=== PATIENT | male | born 1965 | race Caucasian/White ===

== ENCOUNTER → 2017-03-18 | Outpatient (CLI) | payer BC ==
--- NOTE | 2017-03-18 16:25 | KCIC ---
EXAM: MRI LUMBAR SPINE WITHOUT CONTRAST. HISTORY: Back pain, right lower extremity radiculopathy. TECHNIQUE: Magnetic resonance images of the lumbar spine were obtained without contrast. COMPARISON: None. FINDINGS: There is slight retrolisthesis from L3 through L5. No fractures are identified. Degenerative disc disease is moderate to severe from L3 through L5. The conus is at L1 and appears normal. At T11-12, there is a small posterior disc bulge. There is no stenosis. At T12-L1, there is a minimal posterior disc bulge. There is no stenosis. At L1-2, there is a minimal posterior disc bulge versus a small right paracentral protrusion. This level is not included on the axial series. There is no stenosis. At L2-3, there is a small posterior disc bulge. There is no stenosis. At L3-4, there is a moderate posterior disc-osteophyte complex with a moderate broad superimposed inferior disc extrusion. Disc material extends inferiorly in the anterior epidural space by 6 mm. Both lateral recesses are moderately to severely narrowed with mass effect on both L4 nerve roots. Central canal stenosis is overall mild. Neural foraminal stenosis is mild to moderate bilaterally. Lateral osteophyte complexes exert some mass effect on the exiting L3 nerve roots bilaterally. At L4-5, there is a moderate posterior disc-osteophyte complex. Both lateral recesses are mildly to moderately narrowed. Neural foraminal stenosis is mild to moderate bilaterally. There is mild mass effect on both exiting L4 nerve roots from lateral osteophyte complexes. At L5-S1, there is no stenosis. IMPRESSION: 1. At L3-4, a moderate broad inferior disc extrusion results in mild central canal stenosis and moderate to severe bilateral lateral recess stenosis. Neural foraminal stenosis is mild to moderate bilaterally. 2. At L4-5, neural foraminal stenosis is mild to moderate bilaterally. Both lateral recesses are also mildly to moderately narrowed. 3. Moderate to severe degenerative disc disease from L3 through L5. Electronically signed by: Kulwinder Manriquez MD (03/18/2017 4:23 PM) [facility]
== END | disposition home or self-care (01) ==
LOC: KCIC MRI 14:33
PROVIDERS: ATTEND Family Medicine
DX: M48.06 Spinal stenosis, lumbar region (principal); M51.16 Intervertebral disc disorders with radiculopathy, lumbar region
CPT/HCPCS: 72148

== ENCOUNTER → 2017-05-24 | Outpatient (CLI) | payer BC ==
[~2017-05-24] MED LIST: ALLO300T PO; COLC0.6T34 PO; CYCL10TA2 PO; GLIM2TAB2 PO; HYDR-2762 PO; HYDR50TA6 PO; LISI30TA4 PO
--- NOTE | 2017-05-24 15:50 | EKG ---
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
[2017-05-24 15:54] LABS: BASO % 1 % (0-3); EOS % 2 % (0-3); HEMATOCRIT 43.2 % (39.0-53.0); HEMOGLOBIN 14.6 g/dL (13.0-17.5); LYMPH # 1.8 x10^3/uL (1.0-4.8); LYMPH % 25 % (24-48); MEAN CORPUSCULAR HEMOGLOBIN 30 pg (25-35); MEAN CORPUSCULAR HGB CONC 34 g/dL (31-37); MEAN CORPUSCULAR VOLUME 90 fL (79-100); MONO % 7 % (0-9); NEUT % 66 % (31-73); PLATELET COUNT 173 x10^3/uL (140-400); RED CELL DISTRIBUTION WIDTH 13.9 % (11.5-14.5); WHITE BLOOD COUNT 7.2 x10^3/uL (4.0-11.0)
[2017-05-24 16:21] LABS: ALBUMIN 4.3 g/dL (3.4-5.0); ALBUMIN/GLOBULIN RATIO 1.4 (1.0-1.7); CALCIUM 10.2 mg/dL (8.5-10.1); CREATININE 1.9 mg/dL (0.7-1.3); GFR 37.1; POTASSIUM 3.7 mmol/L (3.5-5.1); TOTAL BILIRUBIN 0.9 mg/dL (0.2-1.0); TOTAL PROTEIN 7.4 g/dL (6.4-8.2)
== END | disposition home or self-care (01) ==
LOC: SURGPAT 14:33
PROVIDERS: ATTEND Neurological Surgery
DX: M48.06 Spinal stenosis, lumbar region (principal); M54.16 Radiculopathy, lumbar region; I44.4 Left anterior fascicular block; I49.1 Atrial premature depolarization; I10 Essential (primary) hypertension
CPT/HCPCS: 36415; 80053; 83036; 85025; 87641; 93005

== ENCOUNTER 2017-06-03 08:33 | Day surgery (SDC) | payer BC ==
[~2017-06-03] VITALS: Ht 170.2 cm; Wt 90.7 kg
--- NOTE | 2017-06-03 07:01 | HP ---
ADMIT DATE: DATE OF SURGERY: 06/03/2017 HISTORY OF PRESENT ILLNESS: The patient is a pleasant 52-year-old man who is having difficulty with low back pain and pain which radiates to his right hip and anterior thigh as well as lateral thigh on the right side. The pain and numbness can extend into his right leg. He feels as though there may be some weakness in his right foot. He has not fallen. The problem started in September 2015. He said this occurred after he was remodeling a bathroom. He rates his pain as 6-7/10. He relates that it can become a 10/10 at its worse. He has been limiting his lifting, which is helping him. He is taking hydrocodone 7.5. He has had epidural steroid injections, which have not given him lasting relief. Chiropractic treatment did not help him. He tried physical therapy, but stopped because it was too painful. PAST MEDICAL HISTORY: Gout, hypertension, kidney problems, diabetes. PAST SURGICAL HISTORY: Surgery on his right arm for a puncture wound in 1978. MEDICATIONS: Hydrocodone. ALLERGIES: No known drug allergies. FAMILY HISTORY: Alzheimer disease, diabetes. 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 Single. Does not smoke. Drinks alcohol one to two times per year. REVIEW OF SYSTEMS: A 12-point review of systems was performed and is noncontributory except that mentioned above. PHYSICAL EXAMINATION: GENERAL: Alert, pleasant, in no acute distress. HEAD: Normocephalic, atraumatic. SKIN: Warm and dry. MUSCULOSKELETAL: Lumbar paraspinal muscle bulk is normal, restricted range of motion of the lumbar spine, [id number] tenderness of the lower lumbar spine with palpation, normal range of motion of the lower extremities bilaterally. EXTREMITIES: No clubbing, cyanosis or edema. NEUROLOGIC: Alert and oriented x 3. Strength is 5/5 in the bilateral lower extremities except for EHL on the right, which is 4+/5. Sensory was intact to light touch in the lower extremities bilaterally. Reflexes were present with right knee jerk decreased compared to the left. Ankle jerks were trace bilaterally, positive straight leg raising on the right, negative straight leg raising on the left, normal gait. IMAGING DATA: I reviewed a recent lumbar MRI scan. There is a broad-based disk bulge/extrusion at L3-L4, which does narrow both the lateral recesses. At L4-L5, there is hypertrophic facet and ligamentum flavum, which narrows both lateral recesses right greater than left. ASSESSMENT AND PLAN: I believe the problems at L3-L4 and L4-L5 are responsible for his pain. My recommendation at this point is that he consider lumbar microsurgery at both of these levels. I will perform a right microdecompression at L3-L4 and expect to remove disk material and decompress the right L4 root and at L4-L5, remove hypertrophic facet and ligamentum flavum to decompress that region. I did discuss with him the surgery including the technique, the risk and the expected postoperative course. He would like to go ahead. We are going to make the arrangements. MARY ANN KEARNEY MD DR: DOROTEO/nargis JOB#: [id number] / [id number]
[~2017-06-03 08:33] MED LIST changes: +BACITRACIN 50,000 UNIT in IV NORMAL SALINE 1000ML BAG 1,000 ML IRR ONE; +BUPIVACAINE-EPI 0.25%-1:200000 MPF 30 ML VIAL. ONE; +GELATIN SPONGE SIZE 100. ONE; +HYDROmorphone 2 MG/ML VIAL IV PRN; +IV RINGERS,LACTATED 1000ML 1,000 ML IV SCH; +KETOROLAC 60 MG/2 ML INJ FOR OR. ONE; +LIDOCAINE 1% PF 2 ML VIAL. ID PRN; +ONDANSETRON PF 4 MG/2 ML VIAL. IV PRN; +PROCHLORPERAZINE 10 MG/2 ML VIAL. IV PRN; +THROMBIN TOPICAL 20,000 UNIT SPRAY.SYRN KIT TP ONE; +fentaNYL PF VIAL 100 MCG/2 ML VIAL IV PRN
[2017-06-03] MEDS ORDERED: DEXAMETHASONE SOD PHOS 20 MG/5 ML VIAL. ONE (09:34)
[2017-06-03] MEDS ORDERED: PROPOFOL 20 ML IV ONE (09:34)
[2017-06-03] MEDS ORDERED: PROPOFOL 50 ML IV ONE (09:34)
[2017-06-03] MEDS ORDERED: REMIFENTANIL 2 MG VIAL. IV ONE (09:34)
[2017-06-03] MEDS ORDERED: LIDOCAINE 2% PF Vial for OR 5 ML VIAL. ONE (09:34)
[2017-06-03] MEDS ORDERED: SUCCINYLCHOLINE 200 MG/10 ML VIAL. ONE (09:34)
[2017-06-03] MEDS ORDERED: ONDANSETRON PF 4 MG/2 ML VIAL. ONE (09:34)
[2017-06-03] MEDS ORDERED: fentaNYL PF VIAL 100 MCG/2 ML VIAL ONE ×2 (09:34→14:11)
[2017-06-03] MEDS ORDERED: 0.9 % SODIUM CHLORIDE 50 ML VIAL. IJ ONE (09:34)
[2017-06-03] MEDS ORDERED: DESFLURANE > 120 MINUTES IH ONE (09:34)
[2017-06-03] MEDS ORDERED: MIDAZOLAM HCL/PF 2 MG/2 ML VIAL. ONE (09:34)
[2017-06-03] MEDS ORDERED: MINERAL OIL/PETROLATUM,WHITE OPHTH OINT 3.5GM TUBE. ONE (09:34)
[2017-06-03] MEDS ORDERED: PHENYLEPHRINE in 0.9% NACL PF 1 MG/10 ML DISP.SYRIN. IV ONE (12:03)
[2017-06-03] MEDS ORDERED: ePHEDrine PF IN SALINE 50 MG/5 ML DISP.SYRIN IV ONE (12:07)
--- NOTE | 2017-06-03 13:49 | DISCH ---
DISCHARGE INSTRUCTIONS Condition on Discharge Condition on Discharge: Stable Activity After Discharge Activity Instructions for Disc: Activity as tolerated, Avoid exertion Other activity instructions: no driving for a week Bathing Instructions: Shower-keep dressing dry Lifting Instructions after Dis: No heavy lifting, No pulling or pushing, Do not lift >10 pounds Diet after Discharge Additional Diet Restrictions: resume home diet Wound Incision Care Wound/Incision Care: Ice to area for comfort Other wound/incision instructi: may remove dressing in 48 hours if dry then may shower, no soaking Contacting the after DC Call your doctor for: Concerns you may have Follow-Up Follow up with: Dr. Kearney's nurse in 2 weeks [phone] MARY ANN KEARNEY MD Jun 03, 2017 13:49
[2017-06-03] MEDS ORDERED: DOCU-109 PO (13:50)
[2017-06-03] MEDS: fentaNYL PF VIAL 100 MCG/2 ML VIAL IV PRN ×2 (14:16→14:24)
[2017-06-03] MEDS ORDERED: MORPHINE SULFATE 2 MG/ML DISP.SYRIN. ONE (14:24)
[2017-06-03] MEDS: MORPHINE SULFATE 2 MG/ML DISP.SYRIN. IV PRN ×2 (14:25→14:40)
[2017-06-03] MEDS ORDERED: HYDROcodone/APAP 7.5/325MG 1 TAB TABLET PO ONE (14:30)
--- NOTE | 2017-06-03 14:40 | OP ---
DATE OF SURGERY: 06/03/2017 PREOPERATIVE DIAGNOSES: 1. Herniated lumbar disc and lateral recess stenosis, right L3-L4. 2. Lateral recess stenosis, right L4-L5. OPERATION PERFORMED: 1. Hemilaminotomy and microdiscectomy L3-L4, right. 2. Lumbar microdecompression L4-L5, right. The operation was done with EMG monitoring, fluoroscopy, microscopic dissection. SURGEON: Orlando Kearney M.D. [employer] STOCK CLERK: Oly Marcos APRN OPERATIVE INDICATIONS: The patient is a very pleasant 52-year-old man who developed intractable back and right leg pain which failed conservative measures. On imaging studies, he had the above-mentioned findings and I recommended lumbar microsurgery. I spoke with him about the surgery, the risks, the technique and the expected postoperative course. He understood and wished to go forward. DESCRIPTION OF PROCEDURE: Following general endotracheal anesthesia, the patient was positioned prone on the Tom frame. His lumbar region was prepped and draped in standard fashion. TABITHA hose and AV impulse boots were applied for DVT prophylaxis. A microscope was draped. Fluoroscopy was draped and brought into field. Monitoring was established. Ancef 2 grams was given less than 1 hour prior to initiation of the surgery. Using fluoroscopic guidance, an incision was made extending from the mid L3 to mid L5. I dissected down through the skin and subcutaneous tissue and reflected the paraspinal muscles and placed a Sharon micro disc retractor. I brought in the microscope and beginning at L3-L4 after confirming my position fluoroscopically, I burred down a very generous hemilaminotomy. At the level of disc and just above this, the ligamentum was densely calcified and formed a mass which was compressing the dura. Additionally, there was like an infolding ligamentum flavum extending below this which was infolded into the L4 root. After trimming away ligamentum flavum, I gently retracted the dura and nerve roots medially with a micro nerve root retractor and then trimmed first the infolding of the ligamentum flavum and then worked superiorly and drilled and worked around. I was able to free up and pull up posterolaterally the calcified thickened ligament. At this point, then the region was very well decompressed. I performed a partial foraminotomy. There was a large bulging disc, which was partly calcified and I incised this with #11 blade while gently retracting the root medially and then, I entered into the disc and performed a discectomy with pituitary rongeurs. I was able to trim the lateral portion of the calcified disc but medially, the disc was more densely calcified and I was not able to remove this portion; however, the root became very well decompressed. I then irrigated at this level and placed Gelfoam over the hemilaminotomy site and I moved inferiorly to L4-L5, again confirmed my position fluoroscopically and then using the high-speed air drill, I drilled the generous hemilaminotomy. Ligamentum flavum on the lateral portion at this level was densely calcified like bone and I ended up drilling along lateral to this down to the medial portion of the neural foramen and then drilling inferiorly performing a partial foraminotomy, which I gently enlarged with first a 2 mm, then the 2.5 mm feeling Kerrison. Then, I used a high speed air drill to trim the bone superomedially such that I could gently peel the ligamentum medial to lateral. There was a bony excrescence again of thickened ligamentum flavum inferior to disc space markedly compressing the root and I gently freed this up and peeled this away and lifted this back posteriorly. At this point, then I had a foraminotomy. The dura was very well decompressed. I did gently retract the root medially and coagulating some of the large epidural veins. The disc beneath this level was densely calcified, although it was bulging slightly. No discectomy was warranted. I irrigated copiously. I felt the root was very well decompressed throughout its course. I did lay Gelfoam over the hemilaminotomy site and then removed the retractor, irrigated copiously the muscle and subcutaneous tissue layers and then obtained perfect hemostasis. I then closed the fascia with absorbable suture as well as the subcutaneous tissue. The skin was closed with 4-0 subcuticular stitch. The operation went very well and the patient was awakened uneventfully and taken to recovery room in good condition. I was quite pleased with the surgery. ORLANDO KEARNEY MD DR: EILEEN/nargis JOB#: [id number] / [id number] MICHELLE
[2017-06-03 15:21] VITALS: BP 110/50
--- NOTE | 2017-06-04 16:55 | PATHOLOGY ---
PATHOLOGY REPORT * * * * * * * * FINAL DIAGNOSIS: Segments of fibrocartilaginous, adipose, and skeletal muscle tissue and bone, lumbar disc and decompression: - Degenerative changes of fibrocartilaginous tissue. COMMENT: There is no evidence of an acute inflammatory process or malignancy. (JPM:mgr; 06/04/2017) REPORT ELECTRONICALLY SIGNED BY: Vladimir Reyes M.D. DATE/TIME: 06/04/2017 16:54 * * * * * * * * GROSS PATHOLOGY: Received in formalin labeled "Cesar Lazaro, lumbar disc and decompression" are multiple segments of shore, rubbery, and gritty tissue admixed with bone. The specimen measures 2.5 x 2.3 x 1.4 cm in aggregate dimensions. The tissue is submitted representatively in cassette A1 following decalcification. (JPM; 06/03/17) INITIAL CPT CODE(S): A; 79524, 42705 Professional services performed by [facility] [place] [address] Technical services performed by [facility] at [address] [place] [address]. SPECIMEN(S) RECEIVED: A.Lumbar disc and decompression CLINICAL HISTORY: Disc bulge/extrusion L3-4, L4-5, hypertrophic facet ligamentum flavum PATIENT: CESAR LAZARO /AGE: 7 1965 (Age: 52) PATIENT #: [id number] ALT CASE #: SPECIMEN COLLECTION DATE: 06/03/2017 SPECIMEN RECEIVED DATE: 06/03/2017 [facility] - [address] [place] [address] - PHONE: [phone] * * * END OF REPORT * * *
== END 2017-06-03 15:54 | disposition home or self-care (01) ==
LOC: SURG 08:33
PROVIDERS: ATTEND Neurological Surgery
DX: M51.36 Other intervertebral disc degeneration, lumbar region (principal); M48.06 Spinal stenosis, lumbar region; M10.9 Gout, unspecified; E11.22 Type 2 diabetes mellitus with diabetic chronic kidney disease; N18.9 Chronic kidney disease, unspecified; I12.9 Hypertensive chronic kidney disease with stage 1 through stage 4 chronic kidney disease, or unspecified chronic kidney disease; Z86.69 Personal history of other diseases of the nervous system and sense organs; Z86.39 Personal history of other endocrine, nutritional and metabolic disease; Z87.39 Personal history of other diseases of the musculoskeletal system and connective tissue
CPT/HCPCS: 63030; 63047; 76000; 82962; 88304; 88311; 97162; 97530; G8978; G8979; G8980; J0330; J0690; J1100; J1885; J2250; J2270; J2370; J2405; J2704; J3010; J3490; J7030; J7120; J2001